=== PATIENT | female | born 1970 | race African-American/Black ===

== ENCOUNTER 2021-06-20 11:01 | Outpatient (CLI) | payer BC | END 2021-06-20 11:02 | disposition home or self-care (01) | LOC: BICRAD 11:01 | PROVIDERS: ATTEND Family Medicine | DX: M25.512 Pain in left shoulder (principal) ==

== ENCOUNTER 2025-08-17 16:04 | Outpatient (CLI) | payer BC | END 2025-08-17 16:05 | disposition home or self-care (01) | LOC: SCSRAD 16:04 | PROVIDERS: ATTEND Family Medicine | DX: R06.2 Wheezing (principal) | CPT/HCPCS: 71046 ==